=== PATIENT | male | born 1990 | race African-American/Black ===

== ENCOUNTER 2023-12-18 14:03 | Emergency (ER) | payer OTHER ==
[~2023-12-18] VITALS: Ht 165.1 cm; Wt 84.1 kg
[2023-12-18] MEDS: CEPHALEXIN MONOHYDRATE 500 MG CAPSULE PO ONE (15:21)
[2023-12-18] MEDS: IBUPROFEN 600 MG TABLET PO ONE (15:21)
[2023-12-18] MEDS ORDERED: CEPH-558 PO (17:07)
[2023-12-18] MEDS ORDERED: IBUP-1492 PO (17:07)
[2023-12-18] MEDS ORDERED: SULF-261 PO (17:07)
[2023-12-18 17:18] VITALS: BP 154/100; PULSE 98; RESP 18; TEMP 97.9
== END 2023-12-18 17:20 | disposition home or self-care (01) ==
LOC: EMS 14:03
DX: L02.612 Cutaneous abscess of left foot (principal)
CPT/HCPCS: 99283

== ENCOUNTER 2023-12-21 10:25 | Emergency (ER) | payer OTHER ==
[~2023-12-21] VITALS: Ht 165.1 cm; Wt 75.0 kg
[~2023-12-21 10:25] MED LIST: CEPH-558 PO; IBUP-1492 PO; SULF-261 PO
[2023-12-21 10:32] VITALS: TEMP 97.9
[2023-12-21 12:40] VITALS: BP 141/88; PULSE 96; RESP 18
== END 2023-12-21 13:05 | disposition home or self-care (01) ==
LOC: EMS 10:25
DX: L02.612 Cutaneous abscess of left foot (principal); Z98.890 Other specified postprocedural states
CPT/HCPCS: 99281; Z7502